=== PATIENT | male | born 1955 | race Caucasian/White ===

== ENCOUNTER → 2019-07-02 11:49 | Outpatient (CLI) | payer OTHER, SELFPAY ==
--- NOTE | 2019-07-02 | DI.US.S_ITS ---
PROCEDURE: US ABDOMEN LIMITED INDICATIONS: UNILAT INGUINAL HERNIA, W/O OBSTRUCTION TECHNIQUE: Real-time focused scanning was performed of the inguinal region, with image documentation. COMPARISON: [facility], CT, KIDNEY/ URETER/BLADDER, 12/30/2011, 16:35. FINDINGS: Partially reducible, fat containing right inguinal hernia. IMPRESSION: Right inguinal hernia. Dictated by: Mando MATT Interpreted: Maryanne Avila MD on 07/02/2019 at 12:53 Approved by: Maryanne Avila M.D. on 07/02/2019 at 15:59
== END ==
PROVIDERS: Visit Provider Nurse Practitioner Family
DX: K40.90 Unilateral inguinal hernia, without obstruction or gangrene, not specified as recurrent (principal)
CPT/HCPCS: 76705

== ENCOUNTER 2019-07-17 13:26 | Day surgery (SDC) | payer OTHER, SELFPAY ==
[2019-07-16 08:02] VITALS: BMI 27.9
[2019-07-17] VITALS (11 sets, daily range): BP systolic 107–154; BP diastolic 53–84; PULSE 46–55; RESP 13–28; TEMP 36.1–37.4; O2SAT 92–100; BMI 27.1
[2019-07-17] MEDS: LACTATED RINGERS 1,000 ML 100 ML IV (14:15)
--- NOTE | 2019-07-17 15:04 | PM.PREOP ---
Pre-operative Note Interval Note History & Physical reviewed/Exam performed by Physician: Yes Changes to H&P: No
[2019-07-17] MEDS: CEFAZOLIN 2 GM/100 ML FROZ.PIGGY IV (15:25)
[2019-07-17] MEDS: BUPIVACAINE 0.25% (PF) VIAL 30 ML INJ (16:25)
--- NOTE | 2019-07-17 16:35 | SUR.OPER ---
USED A DEMO TACKER FROM [facility], GROUNDING PAD USED ON RIGHT SHOULDER MIDWAY THROUGH CASE
[2019-07-17] MEDS: LACTATED RINGERS 1,000 ML 42 ML IV (17:12)
--- NOTE | 2019-07-17 18:20 | PM.OP.1 ---
Operative Date/Time/Diagnoses Date of procedure: 07/17/19 Time of procedure: 18:20 Pre-op diagnosis: bilateral inguinal hernia Post-op diagnosis: same Procedure & Clinicians Procedure: bilateral laparoscopic trans abdominal preperitoneal inguinal hernia repair with mesh Same procedure as scheduled: Yes Surgeon: Jesus Mejia Click Yes if Unassisted: Yes Anesthesia Type: General Operative Notes Findings: R-direct and indirect inguinal hernia L-direct and indirect inguinal hernia Specimen(s): none sent Estimated Blood Loss (mL): 10 Procedure in detail: The patient was brought to the operating room and placed supine on the table. Bilateral sequential compression devices were applied. General anesthesia was induced and they were intubated with an endotracheal tube. They received 2 g acne prior to skin incision. They were prepped and draped in sterile fashion. A time out was performed to ensure the correct patient, procedure and necessary equipment within the operating room. The skin was infiltrated with 0.25% bupivicaine. A 1 cm infra umbilical midline incision was made. The umbilical stalk was elevated the fascia sharply incised and the abdomen entered traumatically. A 10mm balloon port was placed and pneumoperitoneum was established at 15mm Hg. Insepction of the abdomen demonstrated no evidence of injury upon entry. Two 5 mm ports were then placed under direct visualization in the right and left lower quadrant lateral to the rectus muscle. A right direct and indirect hernia were observed. The peritoneum 2 cm superior to the myopectineal orifice between the medial umbilical ligament and the anterior superior iliac spine was incised. The peritoneal flap was retracted and the preperitoneal tissue was dissected off the flap. This was continued until a cylinder of peritoneal tissue comprising the hernia sac extending into the inguinal canal was identified and sac reduced back into the peritoneal cavity. The vas deferens and spermatic vessels were identified protected. The peritoneum was dissected off the the spermatic vessels and fully exposed to the point where the vas deferens intersects with the medial umbilical ligament. A Bard 3D Max mesh was then placed into the abdomen and positioned such that the myopectineal orifice was completely covered with good overlap on all sides. The mesh was anchored to the pubic tubercle and to Jarrett?s ligament. The peritoneal flap was then repositioned back to its original position and tacks were used to anchor it in position such that no bowel could herniate into the preperitoneal space. The area was examined for hemostasis. A small left direct and indirect hernia were observed. In order to fully access the left myopectineal orifice, the lateral attachments to the sigmoid colon were excised and sigmoid colon moved medial. The left inguinal hernia was then repaired in the same fashion. The 5mm trocars were removed under direct visualization and pneumoperitoneum was deflated through the umbilical trocar, The fascia at the umbilicus was closed with 0-Vicryl in figure of 8 fashion, skin closed with 4-0 Monocyl followed by Dermabond. The sponge and instrument count at the end of the case was correct. Both testicles were entirely within the scrotum at the end of the case. The patient emerged from anesthesia was extubated and transferred to recovery in stable condition. Complications: none Post-operative Condition: stable Disposition: same day surgery
--- NOTE | 2019-07-17 18:54 | SUR.PHASEII ---
pt arrived to phase II via stretcher. pt in stable condition, vss. IV site clear and infusing without difficultly. pt girlfriend brought to bedside. pt denies any pain/discomfort or nausea. Reviewed dc instructions with pt and pt girlfriend, no further questions or concerns voiced. bed in lowest position and call light given to pt. pt requesting to rest longer at this time.
--- NOTE | 2019-07-17 19:26 | SUR.PHASEII ---
Bedside report given to NICKIE David. Pt in stable condition, vss. Transferred care of pt to NICKIE David at this time.
--- NOTE | 2019-07-17 19:52 | SUR.PHASEII ---
192 Assumed care, pt resting in bed, states that he doesn't feel ready to get up; will need to void. Declines pain med. 1944 States that he needs to get up to the bathroom, declines dizziness or light-headedness. Ambulated into bathroom, stable on feet. Pain 5/10, declines pain med; states that he will take tylenol when he goes home. Clothes given, girlfriend will assist with dressing.
--- NOTE | 2019-07-17 20:09 | SUR.PHASEII ---
Ice packs x2 given for home.
== END 2019-07-17 20:05 | disposition home or self-care (01) ==
PROVIDERS: PCP Student in an Organized Health Care Education/Training Program; Visit Provider Surgery
PROC: 0YQ64ZZ Repair Left Inguinal Region, Percutaneous Endoscopic Approach (ICD-10-PCS; CPT 49650; principal; 2019-07-17 14:45)
DX: K40.20 Bilateral inguinal hernia, without obstruction or gangrene, not specified as recurrent (principal)
CPT/HCPCS: 49650; C1781; J0690; J1100; J2405; J2704; J3010

== ENCOUNTER → 2019-10-17 14:45 | Outpatient (CLI) | payer OTHER, SELFPAY ==
--- NOTE | 2019-10-17 14:46 | DI.US.S_ITS ---
PROCEDURE: US ABDOMEN LIMITED INDICATIONS: EVALUATE STATUS OF HERNIA. Reported prior bilateral inguinal hernia repair June 2019. Patient reports pain left groin area. TECHNIQUE: Real-time focused scanning was performed of the inguinal region, with image documentation. COMPARISON: [facility], US ABDOMEN LIMITED, 07/02/2019, 12:07. FINDINGS: At the right groin no abnormal fluid collection is present nor is there a hernia visualized adjacent to what appears to be the hernia repair mesh. On the left there is no abnormal fluid collection adjacent to the visualized presumed mesh hernia repair material, but there is a palpable area of mobile lump, which appears to represent a fat-containing hernia through a 8mm opening at the margin of the mesh, without associated visualized internal peristalsis. This does not appear reproducible by sonographic palpation. IMPRESSION: Normal appearance of the right groin area after hernia repair. Suspect fat-containing hernia at the margin of the hernia repair mesh on the left, without internal peristalsis or visualized bowel. Given this finding CT scanning with contrast may be warranted at this time to more accurately evaluate the etiology for the reported palpable mildly mobile mass in the area of hernia repair. Dictated by: Kermit Pratt M.D. on 10/18/2019 at 10:31 Approved by: Kermit Pratt M.D. on 10/18/2019 at 10:34
== END ==
PROVIDERS: PCP Student in an Organized Health Care Education/Training Program; Visit Provider Surgery
DX: K40.20 Bilateral inguinal hernia, without obstruction or gangrene, not specified as recurrent (principal)
CPT/HCPCS: 76705

== ENCOUNTER → 2019-12-05 13:22 | Outpatient (CLI) | payer OTHER, SELFPAY ==
--- NOTE | 2019-12-05 | DI.US.S_ITS ---
PROCEDURE: US SCROTUM INDICATIONS: HYDROCELE TECHNIQUE: Real-time scanning was performed of the scrotum and testicles, with image documentation. Color and pulse Doppler interrogation was performed of both testicles. COMPARISON: None. FINDINGS: Right: Testicle is normal in size at 4.2 x 3.4 x 2.7 cm, and homogenous in echotexture. Epididymis is normal in overall size and mildly hyperemic. There is a hydrocele. No varicoceles. Overlying scrotal skin is normal in thickness. Left: Testicle is normal in size at 5.0 x 3.1 x 3.4 cm, and there is a probable cyst/spermatocele measuring 4 mm, although small size makes evaluation technically difficult and this could be monitored with followup ultrasound to document long-term stability. No internal vascularity and probable posterior wall enhancement. No definite enhanced through-transmission Epididymis is normal in overall size and morphology. There is a hydrocele. No varicoceles. Overlying scrotal skin is normal in thickness. Doppler: Color and pulse Doppler demonstrate normal and symmetric arterial flow in both testicles. IMPRESSION: Bilateral mild-moderate hydroceles, left greater than right. Probable left-sided intratesticular cyst/spermatocele. Please see comment above Mildly hyperemic appearance of the right epididymis raising possibility of low-grade epididymitis although recommend clinical correlation and to urinalysis data. Dictated by: Armen Drake M.D. on 12/05/2019 at 17:23 Approved by: Armen Drake M.D. on 12/05/2019 at 17:33
== END ==
PROVIDERS: PCP Student in an Organized Health Care Education/Training Program; Referring Provider Urology; Visit Provider Urology
DX: N43.3 Hydrocele, unspecified (principal)
CPT/HCPCS: 76870